=== PATIENT | female | born 1990 ===

== ENCOUNTER 2020-06-03 11:55 | Outpatient (CLI) | payer OTHER ==
[2020-06-03] MEDS ORDERED: LACTATED RINGERS 500 ML IV ONE (12:41)
[2020-06-03 14:21] VITALS: BP 111/66
--- NOTE | 2020-06-03 18:13 | Ultrasound Report ---
OBSTETRICAL ULTRASOUND WITH BIOPHYSICAL PROFILE HISTORY: Postdates. FINDINGS: Obstetrical ultrasound was performed to single viable intrauterine in the cephali c position has heart tones 132 bpm. Placenta is anteriorly located at the fundus and appears gr chelo 2. Estimated age by ultrasound is 38 weeks 4 days. Amniotic fluid index is 9.4 cm. The largest pocket is pocket one measuring 3.4 cm. Estimated we ight is 3853 g. Incidentally noted is dilatation of the right renal pelvis measuring 1.34 cm. Biophysical profile is normal measuring 8/8. IMPRESSION: 1. Normal biophysical profile measuring 8/8. 2. Dilatation of the right renal pelvis measuring 1.34 cm. Signer Name: Júnior Livingston MD Signed: 06/03/2020 6:08 PM Workstation Name: [id number]
== END 2020-06-03 17:55 | disposition home or self-care (01) ==
LOC: TRG 11:55 → APU 11:56 → TRG 17:55
PROVIDERS: ATTEND Obstetrics & Gynecology
DX: O47.1 False labor at or after 37 completed weeks of gestation (principal); Z3A.40 40 weeks gestation of pregnancy
CPT/HCPCS: 59025; 76816; 76819

== ENCOUNTER 2020-06-11 06:31 | Inpatient (IN) | payer OTHER ==
[2020-06-11] MEDS ORDERED: LIDOCAINE (2%) 20 MG/1 ML VIAL 20 ML MDV INFILTRATI NR (08:57)
[2020-06-11] MEDS ORDERED: AMPICILLIN/NS 2 GM/100 ML 2 GM/100 ML BAG IV ONE (08:57)
[2020-06-11] MEDS ORDERED: fentaNYL 100 MCG/2 ML INJ IV PRN (09:00)
[2020-06-11] MEDS ORDERED: LACTATED RINGERS 1,000 ML IV SCH (09:00)
[2020-06-11] MEDS ORDERED: ePHEDrine SULFATE 50 MG/1 ML INJ IV PRN (09:00)
[2020-06-11] MEDS ORDERED: TERBUTALINE 1 MG/1 ML INJ SUB-Q PRN (09:00)
[2020-06-11 09:41] LABS: Basophils % (Auto) 0.7 % (0.0-1.8); Eosinophils % (Auto) 0.6 % (0.0-4.3); Hematocrit 30.2 % (30.3-42.9); Hemoglobin 9.9 gm/dl (10.1-14.3); Lymphocytes # (Auto) 1.8 K/mm3 (1.2-5.4); Lymphocytes % (Auto) 26.3 % (13.4-35.0); Mean Corpuscular HGB Conc 33 % (30-34); Mean Corpuscular Volume 72 fl (79-97); Monocytes # (Auto) 0.6 K/mm3 (0.0-0.8); Monocytes % (Auto) 8.1 % (0.0-7.3); Platelet Count 263 K/mm3 (140-440); Red Blood Count 4.21 M/mm3 (3.65-5.03); Red Cell Distribution Width 16.5 % (13.2-15.2)
[2020-06-11] MEDS ORDERED: miSOPROStol 200 MCG TAB PR NR (10:19)
[2020-06-11] MEDS ORDERED: MINERAL OIL 30 ML ORAL LIQD ONE (10:27)
[2020-06-11] MEDS: OXYTOCIN DRIP 30 UNITS/500 ML BAG IV SCH ×2 (10:54→12:08)
--- NOTE | 2020-06-11 11:16 | History and Physical Report ---
History of Present Illness Date of examination: 06/11/20 Date of admission: 06/11/2020 Chief complaint: Intense Labor Pains History of present illness: Early entry to care at [facility], course complicated by dysuria (treated with Macrobid); and +Chlamydia (treated with Negative PAPO). Patient stopped care at 18 6/7 Weeks on 01/19/2020. Patient was discharged from care. 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 Family/Genetic History: none Social history: no significant social history, - Obstetrical History Expected Date of Delivery: 06/15/20 Actual Gestation: 39 Week(s) 3 Day(s) : 6 Para: 5 Hx # Term Pregnancies: 5 Number of Living Children: 5 #1 Gender: Male year: 2,008 Birthweight: 4.082 kg Method of Delivery: Vaginal Gestational age at delivery: 40 Complications: none #2 Infant Gender: Male year: 2,010 Birthweight: 4.082 kg Method of Delivery: Vaginal Gestational age at delivery: 40 Complications: none #3 Infant Gender: Male year: 2,012 Birthweight: 4.082 kg Method of Delivery: Vaginal Gestational age at delivery: 40 Complications: none #4 Gender: Male year: 2,013 Birthweight: 4.082 kg Method of Delivery: Vaginal Gestational age at delivery: 40 Complications: none #5 Infant Gender: Female year: 2,015 Birthweight: 3.629 kg Method of Delivery: Vaginal Gestational age at delivery: 40 Complications: none Medications and Allergies Allergies Allergy/AdvReac Type Severity Reaction Status Date / Time No Known Allergies Allergy Verified 01/15/14 13:54 Home Medications Medication Instructions Recorded Confirmed Last Taken Type No Known Home Medications [No 06/11/20 06/11/20 Unknown History Reported Home Medications] Active Meds: Active Medications Ephedrine Sulfate (Ephedrine Sulfate 50 Mg/1 Ml Inj) 10 mg IV Q2M PRN PRN Reason: Hypotension Fentanyl (Fentanyl 100 Mcg/2 Ml Inj) 100 mcg IV Q2H PRN PRN Reason: Pain,Severe (7-10) LABOR PAIN Last Admin: 06/11/20 10:19 Dose: 100 mcg Documented by: Lactated Ringer's (Lactated Ringers) 1,000 mls @ 125 mls/hr IV DIRECT ANDREA Oxytocin/Sodium Chloride (Pitocin/Ns 30 Unit/500ml) 30 units in 500 mls @ 40 mls/hr IV TITR ANDREA; Protocol Last Admin: 06/11/20 10:54 Dose: 160 ml/hr, 160 mls/hr Documented by: Ampicillin Sodium (Ampicillin/Ns 1 Gm/50 Ml) 1 gm in 50 mls @ 100 mls/hr IV Q4H ANDREA; Protocol Mineral Oil (Mineral Oil 30 Ml Oral Liqd) 30 ml PO QHS PRN PRN Reason: Constipation Misoprostol (Misoprostol 200 Mcg Tab) 1,000 mcg MI ONCE NR Stop: 06/11/20 15:00 Last Admin: 06/11/20 10:55 Dose: 800 mcg Documented by: Terbutaline Sulfate (Terbutaline 1 Mg/1 Ml Inj) 0.25 mg SUB-Q ONCE PRN PRN Reason: Hyperstimulation/Hypertonicity Review of Systems All systems: negative - Vital Signs Vital signs: Vital Signs Temp Resp 98.2 F 20 06/11/20 08:05 06/11/20 08:05 Temp Pulse Resp BP Pulse Ox 98.2 F 76 16 123/61 98 06/11/20 08:05 06/11/20 11:05 06/11/20 10:19 06/11/20 10:57 06/11/20 11:05 - Physical Exam Breasts: Positive: normal Cardiovascular: Regular rate Lungs: Positive: Clear to auscultation, Normal air movement Abdomen: Positive: normal appearance, soft, normal bowel sounds Genitourinary (Female): Positive: normal external genitalia, normal perenium Vagina: Positive: normal moisture Uterus: Positive: enlarged Anus/Rectum: Positive: normal perianal skin Extremities: Positive: normal - Obstetrical FHR: category 1 Uterine Contraction Monitor Mode: Internal Cervical Dilatation: 8 (Particulate, Thick Brown Meconium Stained Fluids observed upon AROM at 1013) Cervical Effacement Percentage: 80 station: -1 Uterine Contraction Pattern: Regular Uterine Tone Measurement Phase: Resting Uterine Contraction Intensity: Moderate Results Result Diagrams: 06/11/20 09:35 Abnormal lab results 06/11/20 Range/Units 09:35 Hgb 9.9 L (10.1-14.3) gm/dl Hct 30.2 L (30.3-42.9) % MCV 72 L (79-97) fl MCH 24 L (28-32) pg RDW 16.5 H (13.2-15.2) % [place] % (Auto) 8.1 H (0.0-7.3) % All other labs normal. Assessment and Plan A: IUP @ 39 3/7 Weeks Category I Tracing Active Labor GBS Unknown Walk In Patient P: Admit to L&D Per Routine Orders AROM IUPC IV Pain Control Anticipate
--- NOTE | 2020-06-11 11:29 | Procedure Note ---
OB Delivery Note - Delivery Date of Delivery: 06/11/20 (1049) Surgeon: ZACK BARROS Estimated blood loss: 200cc - Vaginal Delivery presentation: vertex Delivery position: OA Intrapartum events: meconium Delivery induction: none Delivery augmentation: rupture of membranes Delivery monitor: internal FHT Route of delivery: Delivery placenta: spontaneous Delivery cord: 3 umbilical vessels Episiotomy: none Delivery laceration: none Anesthesia: none Delivery comments: of a live 9'0 male infant over a intact perineum under IV Pain Control with Apgars of 7 and 8 at 1049 on 06/11/2020. Cord double clamped and cut by ANDRES Barros, Infant not stimulated and handed directly to awaiting NICU/RESP team due to thick meconium stained fluids. 800mcg of Cytotec placed per rectum prior to delivery of placenta. Spontaneous delivery of placenta complete and intact with Llamas side presenting at 1055. Fundus is firm and midline located 4 below the U. Lochia is scant. Cord blood collected; Placenta discarded. GBS Unknown not treated due to rapid labor. - A at 1 minute: 7 at 5 minutes: 8 Gender: Male (9'0)
[2020-06-11] MEDS ORDERED: LANOLIN/ZINC/DIMETHICONE (LANSINOH) 7 GM TP PRN (11:30)
[2020-06-11] MEDS ORDERED: HYDROcodone/ACETAMINOPHEN 5-325 MG TAB PO PRN (11:30)
[2020-06-11] MEDS ORDERED: diphenhydrAMINE 25 MG CAP PO PRN (11:30)
[2020-06-11] MEDS ORDERED: PROMETHAZINE 25 MG TAB PO PRN (11:30)
[2020-06-11] MEDS ORDERED: WITCH HAZEL/ GLYCERIN PAD TP PRN (11:30)
[2020-06-11] MEDS: IBUPROFEN 600 MG TAB PO SCH ×3 (12:08→23:40)
[2020-06-11] MEDS ORDERED: AMPICILLIN/NS 1 GM/50 ML 1 GM/50 ML BAG IV SCH (13:00)
[2020-06-11] MEDS: FERROUS SULFATE 325 MG TAB PO SCH (21:48)
[2020-06-11] MEDS ORDERED: MINERAL OIL 30 ML ORAL LIQD PO PRN (22:00)
[2020-06-12 00:03] LABS: Hematocrit 30.8 % (30.3-42.9)
[2020-06-12] MEDS: IBUPROFEN 600 MG TAB PO SCH ×4 (05:15→23:11)
--- NOTE | 2020-06-12 10:07 | Progress Note ---
Assessment and Plan A: S/P Asymptomatic anemia P: Continue routine pp care Continue PNV D/C home tomm if stable Subjective - Subjective Date of service: 06/12/20 Principal diagnosis: s/p Patient reports: appetite normal, voiding normally, pain well controlled, ambulating normally [place]: doing well Objective - Vital Signs Latest vital signs: Vital Signs Temp Pulse Resp BP BP Pulse Ox 06/12/20 08:27 97.4 F L 67 18 111/53 98 06/12/20 05:15 20 06/12/20 00:00 98.6 F 77 16 115/78 06/11/20 23:40 20 06/11/20 20:50 98.6 F 73 18 113/55 96 06/11/20 16:40 98.6 F 18 06/11/20 16:38 67 106/65 99 06/11/20 12:38 98.4 F 67 15 118/56 100 06/11/20 11:42 84 134/61 06/11/20 11:27 72 121/63 06/11/20 11:18 52 L 83 L 06/11/20 11:15 77 100 06/11/20 11:12 79 123/68 06/11/20 11:10 82 100 06/11/20 11:05 76 98 06/11/20 11:02 94 06/11/20 10:57 93 H 123/61 06/11/20 10:52 76 122/57 06/11/20 10:47 106 H 159/99 06/11/20 10:45 88 93 06/11/20 10:43 87 133/78 06/11/20 10:42 88 98 06/11/20 10:37 97 H 121/73 98 06/11/20 10:34 96 H 93 06/11/20 10:33 93 H 137/84 06/11/20 10:32 95 H 97 06/11/20 10:28 87 130/84 93 06/11/20 10:25 90 96 06/11/20 10:22 85 132/77 06/11/20 10:20 88 98 06/11/20 10:19 16 06/11/20 10:15 97 H 98 06/11/20 10:10 92 H 98 Intake and Output 06/11/20 06/12/20 06/12/20 22:59 06:59 14:59 Intake Total 300 400 Output Total 500 800 Balance -200 -400 Intake: Oral 400 Intake, Free Water 300 Output: Urine 500 800 Void 500 800 Other: Total, Intake Amount 200 Total, Output Amount 500 800 # Voids Void 1 1 - Exam Breasts: Present: normal Abdomen: Present: normal appearance, soft, normal bowel sounds Vulva: both: normal Uterus: Present: normal, firm, fundal height below umbilicus Extremities: Present: normal - Labs Labs: Abnormal lab results 06/11/20 Range/Units 23:24 Hgb 10.0 L (10.1-14.3) gm/dl
[2020-06-12] MEDS: PRENATAL VIT27-FE FUMARATE-FOLIC ACID VIT TAB PO SCH (11:00)
[2020-06-12] MEDS: FERROUS SULFATE 325 MG TAB PO SCH ×2 (11:00→23:11)
[2020-06-13] MEDS: IBUPROFEN 600 MG TAB PO SCH ×4 (04:59→23:42)
[2020-06-13] MEDS: PRENATAL VIT27-FE FUMARATE-FOLIC ACID VIT TAB PO SCH (09:51)
[2020-06-13] MEDS: FERROUS SULFATE 325 MG TAB PO SCH ×2 (09:51→23:42)
--- NOTE | 2020-06-13 13:20 | Progress Note ---
Assessment and Plan A: day 2 S/P . Anemia. P: Iron supplementation. nursing services manager to see patient prior to discharge. Subjective - Subjective Date of service: 06/13/20 Principal diagnosis: day 2 S/P ; noncompliant with care Interval history: Patient to see heel caser prior to discharge. Doing well. No complaints. Patient reports: appetite normal, voiding normally, dizzy ambulation, flatus, ambulating normally, no pain well controlled, no nauseated [place]: doing well Objective - Vital Signs Latest vital signs: Vital Signs Temp Pulse Resp BP Pulse Ox 06/13/20 08:06 98.1 F 61 18 105/55 99 06/13/20 01:03 97.4 F L 74 18 108/60 98 Intake and Output 06/12/20 06/13/20 06/13/20 23:59 07:59 15:59 Intake Total 200 420 120 Balance 200 420 120 Intake: Oral 200 120 Intake, Free Water 420 Other: Total, Intake Amount 200 120 # Voids Void 3 1 1 - Exam Cardiovascular: Present: Regular rate Lungs: Present: Clear to auscultation Abdomen: Present: normal appearance, soft, normal bowel sounds. Absent: distention, tenderness, guarding, rigidity Uterus: Present: normal, firm, fundal height below umbilicus. Absent: bogginess, tenderness Extremities: Present: normal. Absent: tenderness
[2020-06-13 13:50] LABS: Amphetamine Screen,Urine Negative; Benzodiazepines Screen,Urine Negative; Cannabinoid Screen,Urine Negative; Cocaine Screen,Urine Negative; Methadone Screen,Urine Negative; Opiate Screen,Urine Negative
[2020-06-14] MEDS: IBUPROFEN 600 MG TAB PO SCH ×2 (05:20→10:57)
--- NOTE | 2020-06-14 07:49 | Progress Note ---
Assessment and Plan A: day 3 S/P . Noncompliant with care. Anemia. P: Discharge patient home today after she is seen by telephonic nurse case manager. Discussed wi th patient discharge instructions and warning signs. Patient is to continue taking her vitamins and iron supplements at home. Advised patient to avoid intercourse and lifting for 6 weeks. Advised patient to follow up in [facility] clinic in 2 weeks. Patient voiced understanding of all instructions. Subjective - Subjective Date of service: 06/14/20 Principal diagnosis: day 3 S/P ; noncompliant with care Interval history: Patient to see telephonic nurse case manager prior to discharge. Doing well. No complaints. Patient reports: appetite normal, voiding normally, pain well controlled, flatus, ambulating normally, no dizzy ambulation, no nauseated : doing well Objective - Vital Signs Latest vital signs: Vital Signs Temp Pulse Resp BP BP Pulse Ox 06/14/20 00:15 98.0 F 66 18 111/65 99 06/13/20 16:10 98.3 F 69 18 111/67 99 06/13/20 08:06 98.1 F 61 18 105/55 99 Intake and Output 06/13/20 06/13/20 06/14/20 15:59 23:59 07:59 Intake Total 120 1520 120 Balance 120 1520 120 Intake: Oral 120 920 120 Intake, Free Water 600 Other: Total, Intake Amount 120 240 120 # Voids Void 1 1 1 - Exam Cardiovascular: Present: Regular rate Abdomen: Present: normal appearance, soft. Absent: distention, tenderness, guarding, rigidity Uterus: Present: normal, firm, fundal height below umbilicus. Absent: bogginess, tenderness Extremities: Present: normal. Absent: tenderness, edema
--- NOTE | 2020-06-14 07:52 | Discharge Summary ---
Providers - Providers Date of Admission: 06/11/20 08:57 Date of discharge: 06/14/20 Attending physician: ASAEL MULLINS MD 06/13/20 12:09 Consult to Case Management [CONS] Routine Services Needed at Discharge: Preflight Mechanic Phone number called:: [phone] Was contact made?: No Time called:: 13:16 Comment:: computer input Additional Physician Instructions: Nocompliance with care (was discharged from practice due to not keeping her appointments). Primary care physician: ASAEL MULLINS MD Hospitalization Reason for admission: active labor Delivery: Episiotomy: none Laceration: none Other procedures: none complications: none Discharge diagnosis: IUP at term delivered [place] baby: male Pertinent studies: Labs Hospital course: Stable hospital course. Condition at discharge: Good Disposition: DC-01 TO HOME OR SELFCARE - Discharge Diagnoses (1) Term delivered Status: Acute (2) Anemia Status: Acute Plan - Provider Discharge Summary Activity: routine, no sex for 6 weeks, no heavy lifting 4 weeks, no strenuous exercise Diet: routine Instructions: routine Additional instructions: Continue taking your vitamin and iron supplements at home. Call your doctor immediately for: * Fever > 100.5 * Heavy vaginal bleeding ( >1 pad per hour) * Severe persistent headache * Shortness of breath * Reddened, hot, painful area to leg or breast - Follow up plan Follow up: ASAEL MULLINS MD [Primary Care Provider] - 14 Days Forms: [facility] Discharge Summary
[2020-06-14] MEDS: FERROUS SULFATE 325 MG TAB PO SCH (10:57)
[2020-06-14] MEDS: PRENATAL VIT27-FE FUMARATE-FOLIC ACID VIT TAB PO SCH (10:57)
[2020-06-14 14:09] VITALS: BP 104/68
== END 2020-06-14 13:42 | disposition home or self-care (01) | DRG 807 ==
LOC: TRG 06:31 → APU 06:40 → LD 08:57 → TRG 11:08 → OB 12:45
PROC: 10E0XZZ Delivery of Products of Conception, External Approach (ICD-10-PCS; principal; 2020-06-11)
PROC: 10907ZC Drainage of Amniotic Fluid, Therapeutic from Products of Conception, Via Natural or Artificial Opening (ICD-10-PCS; 2020-06-11)
PROC: 10H07YZ Insertion of Other Device into Products of Conception, Via Natural or Artificial Opening (ICD-10-PCS; 2020-06-11)
DX: O77.0 Labor and delivery complicated by meconium in amniotic fluid (principal); Z37.0 Single live birth; Z3A.39 39 weeks gestation of pregnancy; O90.81 Anemia of the puerperium; Z20.822 Contact with and (suspected) exposure to COVID-19
CPT/HCPCS: 36415; 59025; 80307; 85014; 85018; 85025; 86592; 86850; 86900; 86901; 87806; 96360; 96361; 96365; 96374; G0378; J2590; J3010; U0003